=== PATIENT | male | born 1985 | race Caucasian/White ===

== ENCOUNTER 2017-05-31 10:39 | Emergency (ER) | payer OTHER ==
[~2017-05-31] VITALS: Ht 177.8 cm; Wt 70.2 kg
[~2017-05-31 10:39] MED LIST: IBUP-1542 PO
[2017-05-31 10:42] VITALS: Ht 177.8 cm; Wt 70.2 kg
[2017-05-31] MEDS ORDERED: SOD CHLORIDE 0.9% 1,000 ML IV STA (11:20)
[2017-05-31] MEDS ORDERED: LORAZEPAM 2 MG INJ IV ONE (11:30)
[2017-05-31] MEDS ORDERED: FAMOTIDINE 20 MG INJ IV ONE (11:30)
--- NOTE | 2017-05-31 11:48 | RADRPT ---
PROCEDURE: XR Chest. CLINICAL INDICATION: chest pain TECHNIQUE: Single frontal view of the chest was obtained COMPARISON: CR CHEST 01/23/2015 FINDINGS: The heart and mediastinum are within normal limits. The lungs are clear. There is no pleural effusion or pneumothorax. RPTAT: AA IMPRESSION: No acute disease. .Richie Jordan MD, MD Date Time Electronically viewed and signed by .Richie Jordan MD, MD on 05/31/2017 11:47 .S/
[2017-05-31 11:53] LABS: BASOPHIL # 0.1 10^3/ul (0.0-0.1); BASOPHILS % 0.5 % (0.0-2.0); EOSINOPHILS % 0.1 % (0.0-7.0); HEMATOCRIT 41.1 % (42.0-52.0); HEMOGLOBIN 14.5 g/dl (14.0-18.0); LYMPHOCYTES # 1.1 10^3/ul (0.8-2.9); LYMPHOCYTES % 11.2 % (15.0-51.0); MEAN CORPUSCULAR HGB CONC 35.3 g/dl (32.0-37.0); MEAN CORPUSCULAR VOLUME 90.7 fl (82.0-101.0); MEAN PLATELET VOLUME 9.6 fl (7.4-10.4); MONOCYTE # 0.4 10^3/ul (0.3-0.9); MONOCYTES % 4.4 % (0.0-11.0); NEUTROPHIL # 7.9 10^3/ul (1.6-7.5); NEUTROPHILS % 83.3 % (39.0-77.0); PLATELET COUNT 164 10^3/UL (140-415); RED BLOOD COUNT 4.53 10^6/ul (4.70-6.10); RED CELL DISTRIBUTION WIDTH 12.5 % (11.5-14.5); WHITE BLOOD COUNT 9.5 10^3/ul (4.8-10.8)
[2017-05-31 12:19] LABS: ADD UMIC NO; UR ASCORBIC ACID NEGATIVE (NEGATIVE); UR BILIRUBIN (Dip) NEGATIVE (NEGATIVE); UR BLOOD (Dip) NEGATIVE (NEGATIVE); UR CLARITY CLEAR (CLEAR); UR COLOR YELLOW (YELLOW); UR GLUCOSE (Dip) NEGATIVE (NEGATIVE); UR KETONES (Dip) 1+ mg/dL (NEGATIVE); UR LEUKOCYTE ESTERASE (Dip) NEGATIVE Leu/ul (NEGATIVE); UR NITRITE (Dip) NEGATIVE (NEGATIVE); UR SPECIFIC GRAVITY (Dip) 1.019 (1.003-1.030); UR TOTAL PROTEIN (Dip) NEGATIVE (NEGATIVE); UR UROBILINOGEN (Dip) NEGATIVE (NEGATIVE)
[2017-05-31 12:20] LABS: ALBUMIN 4.4 g/dl (3.3-4.9); ALBUMIN/GLOBULIN RATIO 1.41; BILIRUBIN,INDIRECT 0.8 mg/dl (0-1.1); BILIRUBIN,TOTAL 0.8 mg/dl (0.2-1.3); CALCIUM 9.5 mg/dl (8.4-10.2); CREATININE 0.93 mg/dl (0.61-1.24); POTASSIUM 4.2 mmol/L (3.5-5.1); TOTAL PROTEIN 7.5 g/dl (6.1-8.1)
[2017-05-31] MEDS ORDERED: FAMO-96 PO (12:49)
--- NOTE | 2017-05-31 12:57 | ERD ---
ER Documentation Chief Complaint Chief Complaint vomiting and chest pain x 2 days HPI 31-year-old male patient with a past medical history of alcohol abuse, anxiety presents to the ED complaining of vomiting, chest pain, abdominal pain that started intermittently for 2 days. States that he drinks 3 cans of beer yesterday. Denies any drug use. States that he does smoke cigarettes. Reports that touching the chest wall worsens the pain. Describes his abdominal pain a burning sensation. He has had a few episodes of nonbilious nonbloody vomiting. Reports that this feels like denies any fever, chills, diarrhea, breath, dyspnea on exertion, wheezing, leg swelling. Denies any recent traveling. Rates his pain a 10 out of 10. Denies any hematuria, urgency, frequency. ROS All systems reviewed and are negative except as per history of present illness. Medications Home Meds Active Scripts Famotidine* (Pepcid*) 20 Mg Tablet, 20 MG PO BID, #20 TAB Prov:JOHN KURTZ PA-C 05/31/17 Ibuprofen* (Motrin*) 600 Mg Tab, 600 MG PO Q6, #30 TAB Prov:OJHN KURTZ PA-C 06/04/16 Allergies Allergies: Coded Allergies: No Known Allergies (Verified Allergy, Mild, 01/23/15) PMhx/Soc Medical and Surgical Hx: pt denies Medical Hx, pt denies Surgical Hx History of Surgery: No Anesthesia Reaction: No Hx Neurological Disorder: No Hx Respiratory Disorders: No Hx Cardiac Disorders: No Hx Psychiatric Problems: No Hx Miscellaneous Medical Probl: No Hx Alcohol Use: Yes (drunk alcohol last night) Hx Substance Use: Yes (THC) Hx Tobacco Use: Yes Smoking Status: Current every day smoker Physical Exam Vitals Vital Signs Date Time Temp Pulse Resp B/P Pulse Ox O2 Delivery O2 Flow Rate FiO2 05/31/17 10:42 97.9 112 18 131/83 98 Physical Exam Const: [id number]-uld-[id number], well-nourished. In no acute distress. Head: Atraumatic, normocephalic Eyes: Normal Conjunctiva without injection. No purulent discharge. ENT: Normal external ear, nose. Moist oropharynx without tonsillar exudates. Non -erythematous pharynx. Uvula midline. No drooling. No trismus. Neck: No cervical midline tenderness. Full range of motion. No meningismus. No cervical lymphadenopathy. No JVD. Resp: Clear to auscultation bilaterally. No wheezing, rhonchi, rales, or crackles. No accessory muscle use. No retractions. Cardio: Regular rate and rhythm. No murmurs, rubs or gallops. Chest: Tenderness to palpation of the chest wall. Pain is reproducible. Abd: Soft, epigastric tenderness, non distended. Normal bowel sounds. No palpable masses. No rebound tenderness. No guarding. Negative McBurney's point. Negative psoas sign. Negative obturator sign. Skin: No petechiae or rashes Back: No midline tenderness. No CVA tenderness. Ext: No cyanosis, or edema. Neur: Awake and alert. Normal gait. Normal coordination. Psych: Normal Mood and Affect Result Diagram: 05/31/17 1130 05/31/17 1130 Results 24 hrs Laboratory Tests Test 05/31/17 11:30 05/31/17 12:00 White Blood Count 9.510^3/ul Red Blood Count 4.5310^6/ul Hemoglobin 14.5g/dl Hematocrit 41.1% Mean Corpuscular Volume 90.7fl Mean Corpuscular Hemoglobin 32.0pg Mean Corpuscular Hemoglobin Concent 35.3g/dl Red Cell Distribution Width 12.5% Platelet Count 22410^3/UL Mean Platelet Volume 9.6fl Neutrophils % 83.3% Lymphocytes % 11.2% Monocytes % 4.4% Eosinophils % 0.1% Basophils % 0.5% Nucleated Red Blood Cells % 0.0/100WBC Neutrophils # 7.910^3/ul Lymphocytes # 1.110^3/ul Monocytes # 0.410^3/ul Eosinophils # 0.010^3/ul Basophils # 0.110^3/ul Nucleated Red Blood Cells # 0.010^3/ul Sodium Level 144mmol/L Potassium Level 4.2mmol/L Chloride Level 107mmol/L Carbon Dioxide Level 27mmol/L Anion Gap 14 Blood Urea Nitrogen 10mg/dl Creatinine 0.93mg/dl Glucose Level 107mg/dl Calcium Level 9.5mg/dl Total Bilirubin 0.8mg/dl Direct Bilirubin 0.00mg/dl Indirect Bilirubin 0.8mg/dl Aspartate Amino Transf (AST/SGOT) 32IU/L Alanine Aminotransferase (ALT/SGPT) 36IU/L Alkaline Phosphatase 63IU/L Total Protein 7.5g/dl Albumin 4.4g/dl Globulin 3.10g/dl Albumin/Globulin Ratio 1.41 Lipase 52U/L Urine Color YELLOW Urine Clarity CLEAR Urine pH 6.0 Urine Specific [place] 1.019 Urine Ketones 1+mg/dL Urine Nitrite NEGATIVEmg/dL Urine Bilirubin NEGATIVEmg/dL Urine Urobilinogen NEGATIVEmg/dL Urine Leukocyte Esterase NEGATIVELeu/ul Urine Hemoglobin NEGATIVEmg/dL Urine Glucose NEGATIVEmg/dL Urine Total Protein NEGATIVEmg/dl Current Medications Medications (Trade) Dose Ordered Sig/Shaji Route PRN Reason Start Time Stop Time Status Last Admin Dose Admin Sodium Chloride (NS) 1,000 ml @ 1,000 mls/hr Q1H STAT IV 05/31/17 11:20 05/31/17 12:19 DC 05/31/17 11:30 Lorazepam (Ativan) 1 mg ONCE ONCE IV 05/31/17 11:30 05/31/17 11:31 DC 05/31/17 11:30 Famotidine (Pepcid Iv) 20 mg ONCE ONCE IV 05/31/17 11:30 05/31/17 11:31 DC 05/31/17 11:30 Procedures/MDM 31-year-old male patient with alcohol abuse and anxiety presents to the ED complaining of few episodes of nonbilious nonbloody vomiting associated with chest pain and abdominal pain after drinking yesterday. Patient is afebrile nontoxic appearing. Patient has normal vital signs. Patient was further worked up with CBC, CMP, lipase, UA, EKG, chest x-ray. Patient's pain and symptoms have improved after treatment with 1 L normal saline, Famotidine 20 mg IV, 1 mg IV Ativan. CBC: No leukocytosis. No e/o of systemic infection. No e/o anemia. CMP: No e/o severe acidosis, alkalosis, renal failure, diabetic ketoacidosis, liver disease Lipase within normal limits. Urine: No leukocyte esterase, no nitrites, no hematuria. EKG reviewed and interpreted by Dr. Shaver Rate/Rhythm: [98 bpm, Normal Sinus Rhythm] No ectopy, no ST elevations, normal axis. QRS, ST, T-waves: [No changes consistent w/ acute ischemia] Impression: [No evidence of ischemia or arrhythmia] PROCEDURE: XR Chest. CLINICAL INDICATION: chest pain TECHNIQUE: Single frontal view of the chest was obtained COMPARISON: CR CHEST 01/23/2015 FINDINGS: The heart and mediastinum are within normal limits. The lungs are clear. There is no pleural effusion or pneumothorax. RPTAT: AA IMPRESSION: No acute disease. Patient's symptoms could likely be secondary to alcohol usage and anxiety. Low suspicion for acute myocardial infarction, pneumothorax, pneumonia, cardiac tamponade, Gjnem-Csrxkzqyq-Guxyg Syndrome, Brugada Syndrome, pulmonary embolism , AAA, pericarditis, myocarditis, aortic dissection, thoracic aortic dissection , endocarditis, pericarditis, cocaine-related ischemia, Boerhaave's syndrome, cardiac dysrhythmias,meningitis, intracranial bleed, seizure, stroke, TIA or other emergent conditions. Low suspicion for testicular torsion, gastritis, GERD, peptic ulcer disease, cholecystitis, choledocholithiasis, cholangitis, pancreatitis, appendicitis, bowel obstruction, ileus, volvulus, nephrolithiasis , pyelonephritis, hepatitis, perforated viscus, diverticulitis, abdominal hernia , acute abdomen, mesenteric ischemia or other emergent conditions. Discharge medications: Pepcid Follow up with primary care physician in 1-2 days for referral to surveillance inspector. Instructed patient to return to the ED sooner for any worsening symptoms. Patient's questions were answered. Patient understood and agreed with discharge plan. Patient discharged stable. Departure Diagnosis: Primary Impression: Alcohol abuse Additional Impressions: Anxiety Chest wall pain Abdominal pain Abdominal location: epigastric Qualified Code: R10.13 - Epigastric pain Condition: Stable Patient Instructions: Abdominal Pain, Your Body's Response to Anxiety, Anxiety Reaction, Chest Wall Pain, Costochondritis, Alcohol Abuse Referrals: [facility] YOU HAVE RECEIVED A MEDICAL SCREENING EXAM AND THE RESULTS INDICATE THAT YOU DO NOT HAVE A CONDITION THAT REQUIRES URGENT TREATMENT IN THE EMERGENCY DEPARTMENT. FURTHER EVALUATION AND TREATMENT OF YOUR CONDITION CAN WAIT UNTIL YOU ARE SEEN IN YOUR DOCTORS OFFICE WITHIN THE NEXT 1-2 DAYS. IT IS YOUR RESPONSIBILITY TO MAKE AN APPOINTMENT FOR FOLOW-UP CARE. IF YOU HAVE A PRIMARY DOCTOR --you should call your primary doctor and schedule an appointment IF YOU DO NOT HAVE A PRIMARY DOCTOR YOU CAN CALL OUR PHYSICIAN REFERRAL HOTLINE AT IF YOU CAN NOT AFFORD TO SEE A PHYSICIAN YOU CAN CHOSE FROM THE FOLLOWING [facility] [address] [facility] [address] [facility] [address] [facility] [address] [facility] [address] [facility]. [facility]. [address] [facility]. [facility] YOU HAVE RECEIVED A MEDICAL SCREENING EXAM AND THE RESULTS INDICATE THAT YOU DO NOT HAVE A CONDITION THAT REQUIRES URGENT TREATMENT IN THE EMERGENCY DEPARTMENT. FURTHER EVALUATION AND TREATMENT OF YOUR CONDITION CAN WAIT UNTIL YOU ARE SEEN IN YOUR DOCTORS OFFICE WITHIN THE NEXT 1-2 DAYS. IT IS YOUR RESPONSIBILITY TO MAKE AN APPOINTMENT FOR FOLOW-UP CARE. IF YOU HAVE A PRIMARY DOCTOR --you should call your primary doctor and schedule and appointment IF YOU DO NOT HAVE A PRIMARY DOCTOR YOU CAN CALL OUR PHYSICIAN REFERRAL HOTLINE AT . IF YOU CAN NOT AFFORD TO SEE A PHYSICIAN YOU CAN CHOSE FROM THE FOLLOWING [facility], [facility]–1983 INSTITUTIONS: [facility] [address] [place] [address] [facility] [address] [place] [address] [facility] [address] [place] [address] [facility] URGENT CARE/SPECIALTIES Additional Instructions: Call your primary care doctor TOMORROW for an appointment during the next 2-3 days.See the doctor sooner or return here if your condition worsens before your appointment time. JOHN KURTZ PA-C May 31, 2017 12:57
== END 2017-05-31 13:04 | disposition home or self-care (01) ==
LOC: FTE 10:39
DX: F10.10 Alcohol abuse, uncomplicated (principal); F41.9 Anxiety disorder, unspecified; R07.89 Other chest pain; R10.13 Epigastric pain; F17.210 Nicotine dependence, cigarettes, uncomplicated
CPT/HCPCS: 71010; 80053; 81003; 83690; 85025; 93005; 96374; 96375; 99285; J2060; J7030